=== PATIENT | male | born 2000 | race Caucasian/White ===

== ENCOUNTER 2018-08-10 13:20 | Emergency (ER) | payer OTHER, SELFPAY ==
[2018-08-10 13:21] VITALS: BP 121/70; PULSE 77; RESP 18; TEMP 36.1; O2SAT 96; BMI 29.0
--- NOTE | 2018-08-10 13:31 | EKG12_ITS ---
Test Reason : SYNCOPE Blood Pressure : / mmHG Vent. Rate : 061 BPM Atrial Rate : 061 BPM P-R Int : 160 ms QRS Dur : 092 ms QT Int : 386 ms P-R-T Axes : 040 070 057 degrees QTc Int : 388 ms Normal sinus rhythm with sinus arrhythmia Normal ECG Confirmed by JULIAN VEGA, OSVALDO ([id number]), international editorial producer BETTY GARCIA ([id number]) on 08/12/2018 12:49:37 PM Referred By: IRINA Confirmed By:OSVALDO JORDAN MD
--- NOTE | 2018-08-10 13:36 | ED.VISSUMM ---
- ER Visit Summary Date of Service: 08/10/18 Chief Complaint: Syncopal event History of Present Illness: The patient is a 17 M presents to the emergency department after syncopal event. Patient states he does have a history of prior syncope. He states he will pass out from time to time. States that this morning, he felt mildly lightheaded and nauseated. States he got out and then felt worse. States he tried to lay down and then passed out. He denies striking his head. He denies chest pain or shortness of breath. He denies any other symptoms. He has no history of cardiac disease. He has no history of underlying lung disease. He is on no daily medications. He does smoke from time to time. He said no diarrhea or other illness. He is not had fever chills. Physical Examination: Vital signs reviewed General: Well-nourished, well-developed Head: Normocephalic, atraumatic Eyes: Pupils equal and reactive, extraocular muscles intact Neck, supple, no lymphadenopathy Heart: Regular rate and rhythm Respiratory: No distress, clear bilaterally Abdomen: Soft, nontender, nondistended, no peritoneal signs Back: Nontender Extremities: Nontender, no edema, no cords Skin: Normal color no rash Neuro: Alert and oriented, no focal or lateralizing deficits Test Results: [] Emergency Department Course and Treatment: The patient symptoms do seem entirely vasovagal. EKG was obtained. It showed sinus arrhythmia, but normal axis normal intervals. There is no prolonged QT or WPW. Screening labs are obtained were unremarkable. Of fluids, the patient's symptoms have resolved. He does have history of prior syncope. I do not suspect a dangerous cause. I do feel that this is safe for outpatient follow-up. The patient is counseled concerning symptoms and reasons to return. He will be discharged home. Treatment Plan: [] Disposition: Discharge Impression: 1. Vasovagal syncope This note was generated with [employer] dictation software. It may contain incorrect words, spelling, and punctuation that were not noted in review of the chart prior to signing ED Disposition - Plan for ED Patient: Instructions: ED Syncope Vasovagal Referrals: Care Physician,No Primary [Primary Care Provider] -
[2018-08-10] MEDS: 0.9% Normal Saline 1,000 ML 1000 ML IV (13:57)
[2018-08-10 13:58] LABS: Absolute Lymphocyte Count 1.62 X10^3/ul (0.83-4.51); Absolute Neutrophil Count 3.2 X10^3/uL (2.0-7.7); Basophil# 0.05 X10^3/uL; Basophil% 0.9 % (0-1); Eosinophil# 0.31 X10^3/uL; Eosinophils% 5.4 % (0-5); Hematocrit 47.7 % (40-54); Hemoglobin 16.4 g/dl (13.0-16.5); Lymphocyte # 1.62 X10^3/ul (4.0); Mean Corp Hgb Conc 34.4 g/gl (32-36); Mean Corpuscular Hgb 29.4 pg (27.0-32.0); Mean Corpuscular Volume 85.6 fL (80-94); Mean Platelet Vol. 10.7 fl (6.2-12.0); Monocyte# 0.61 X10^3/uL; Monocyte% 10.5 % (0-10); Neutrophil # 3.19 X10^3/uL (2.7-7.7); Platelet Count 227 K/mm3 (150-450); RBC Distribution Width CV 12.9 % (11.6-14.6); RBC Distribution Width SD 40.2 fl (35.1-43.9); Red Blood Count 5.57 M/mm3 (4.6-6.2); White Blood Count 5.8 K/mm3 (4.4-11.0)
[2018-08-10 14:06] LABS: POSITIVE COUNT NO; POSITIVE DIFFERENTIAL NO; POSITIVE MORPHOLOGY NO
[2018-08-10 14:13] LABS: Anion Gap 9 (5-15); BUN 12 mg/dL (7-18); BUN/Creat Ratio 9.5 RATIO (10-20); Calcium,Total 9.3 mg/dL (8.5-10.1); Chloride 107 mmol/L (98-107); Creatinine, Serum 1.26 mg/dL (0.70-1.30); EST Glomerular Filtration Rate 78 mL/min (>60); Est Glom Filt Rate - Afr Amer 94 mL/min (>60); Estimated Creatinine Clearance 82.03 ml/min; Glucose 123 mg/dL (74-106); Potassium 3.7 mmol/L (3.5-5.1); Sodium Level 141 mmol/L (136-145)
[2018-08-10 15:10] VITALS: BP 110/72; PULSE 58; RESP 12; O2SAT 97
== END 2018-08-10 15:13 | disposition home or self-care (01) ==
PROVIDERS: Emergency Provider Emergency Medicine
DX: R55 Syncope and collapse (principal); R11.0 Nausea; Z72.0 Tobacco use
CPT/HCPCS: 80048; 85025; 93005; 96360; 99284; J7030; A4216

== ENCOUNTER 2018-08-30 07:50 | Emergency (ER) | payer OTHER, SELFPAY ==
[2018-08-30 07:51] VITALS: BP 127/87; PULSE 83; RESP 16; TEMP 36.1; O2SAT 98; BMI 30.7
--- NOTE | 2018-08-30 08:16 | CT_ITS ---
STUDY: CT ABDOMEN AND PELVIS WITH CONTRAST REASON FOR EXAM: Male, 18 years old. Right lower quadrant pain and vomiting. RADIATION DOSAGE (If Supplied By Facility): CTDIvol = ( 14.88 ) mGy, DLP = ( 893.37 ) mGycm TECHNIQUE: Transaxial images were obtained from the dome of the diaphragm to the symphysis pubis with oral contrast. 100 IV/Oral Isovue 300 was administered. Sagittal and coronal images were reconstructed. Individualized dose optimization techniques were used for this CT. COMPARISON: None. FINDINGS: Mild increased markings at the lung bases suggestive of bibasilar atelectasis. The visualized portions of the heart are within normal limits. Normal liver. Normal gallbladder and extrahepatic biliary system. Normal spleen. Normal pancreas. Normal bilateral adrenal glands. Normal right kidney. Normal left kidney. Normal visualized stomach. Normal small intestine. Normal colon. Retrocecal appendix. Normal abdominal aorta. Normal inferior vena cava. There is borderline retroperitoneal lymphadenopathy with enlarged nodes no greater than 10mm in the short axis diameter. Normal urinary bladder. Small lymph nodes are seen in the mesentery in the right lower quadrant suggestive of mesenteric adenitis. Normal abdominal wall. Normal osseous structures. CT/Abdomen/Pelvis WITH Contrast IMPRESSION: Mesenteric adenitis in the right lower quadrant. Electronically Signed: Terry Alejandro, at 10:36 EDT , Service support ,
--- NOTE | 2018-08-30 08:19 | ED.DCSUM_ITS ---
- ER Visit Summary Date of Service: 08/30/18 Chief Complaint: Abdominal pain History of Present Illness: The patient is a 18 M with no primary care physician. He reports that he has abdominal pain that began yesterday. Is gradually gotten worse. Sick constant burning pain that waxes and wanes. It is 9 out of 10 at worst and 7-10 currently. Is worsened by movement relieved by remaining still. He has been nausea and vomited 8 times. No blood in his emesis. He is also had 3 episodes of diarrhea. No blood in stools or black tarry stools. No dysuria or frequency. Patient denies sick contacts. Has not been camping out of the country. No possible bad food exposure. He does drink well water, but others do at home and they are not ill. He is unsure of whether he was on antibiotics approximately 3 weeks ago for bronchitis. Physical Examination: Vitals: Stable. Afebrile. General: Well-nourished and well-developed. Head: Normocephalic atraumatic. Neck: Supple, no lymphadenopathy. No JVD. Nontender. Cardiovascular: Regular rate and rhythm. No murmurs. Respiratory: No respiratory distress. Clear to auscultation bilaterally. Abdominal: Soft, mild right upper quadrant and moderate right lower quadrant tenderness to palpation, nondistended, normal bowel sounds. No guarding, rebound, or peritoneal signs. Back: Nontender. Extremities: Nontender, no edema. Skin: Normal color, no rash. Neurologic: Alert and oriented ?3. Cranial nerves II through XII are intact. Normal strength and sensation. Psych: Normal affect. Test Results: CBC is normal. Chem-7 shows a chloride of 108 and calcium of 8.4. LFTs show an ALT of 68 and AST of 44. Lipase is normal. UA is negative. Clinical Impression(s) from Imaging Studies Abdomen/Pelvis CT 08/30/18 08:16 IMPRESSION: Mesenteric adenitis in the right lower quadrant. Electronically Signed: Terry Alejandro, at 10:36 EDT , Service support , Emergency Department Course and Treatment: Patient was treated with dose of morphine and Zofran IV. He is resting comfortably. He has had no vomiting or diarrhea while here. Treatment Plan: Patient will be discharged with Zofran. Instructed use Tylenol and/or ibuprofen for pain. Follow-up Dr. Turk in 3-5 days if not improving. Return to the emergency department for any worsening symptoms. Disposition: To home in improved and stable condition. Impression: 1. Mesenteric adenitis. This note was generated with [employer] dictation software. It may contain incorrect words, spelling, and punctuation that were not noted in review of the chart prior to signing ED Disposition - Plan for ED Patient: Instructions: ED Adenitis Mesenteric Prescriptions: Ondansetron [Zofran Odt] 4 mg PO Q8H PRN PRN #10 tablet PRN Reason: Nausea Referrals: Care Physician,No Primary [Primary Care Provider] - Lynette Turk DO [STAFF PHYSICIAN] - 3-5 Days if not improving
[2018-08-30 08:38] LABS: Absolute Lymphocyte Count 2.72 X10^3/ul (0.83-4.51); Absolute Neutrophil Count 4.9 X10^3/uL (2.0-7.7); Basophil# 0.07 X10^3/uL; Basophil% 0.8 % (0-1); Eosinophil# 0.42 X10^3/uL; Eosinophils% 4.8 % (0-5); Hematocrit 44.4 % (40-54); Hemoglobin 15.3 g/dl (13.0-16.5); Lymphocyte # 2.72 X10^3/ul (4.0); Lymphocyte % 31.3 % (19-41); Mean Corp Hgb Conc 34.5 g/gl (32-36); Mean Corpuscular Hgb 29.9 pg (27.0-32.0); Mean Corpuscular Volume 86.9 fL (80-94); Mean Platelet Vol. 10.5 fl (6.2-12.0); Monocyte# 0.61 X10^3/uL; Neutrophil # 4.85 X10^3/uL (2.7-7.7); Neutrophil % 55.9 % (47-70); POSITIVE COUNT NO; POSITIVE DIFFERENTIAL NO; POSITIVE MORPHOLOGY NO; Platelet Count 246 K/mm3 (150-450); RBC Distribution Width CV 13.1 % (11.6-14.6); RBC Distribution Width SD 41.9 fl (35.1-43.9); Red Blood Count 5.11 M/mm3 (4.6-6.2); White Blood Count 8.7 K/mm3 (4.4-11.0)
[2018-08-30] MEDS: 0.9% Normal Saline 1,000 ML 1000 ML IV (08:53)
[2018-08-30] MEDS: Morphine 4 MG/ML Syringe IV (08:53)
[2018-08-30] MEDS: Ondansetron 4 MG/2 ML Vial IV (08:53)
[2018-08-30 08:54] LABS: AST(SGOT) 44 U/L (15-37); Alanine Aminotransfer ALT/SGPT 68 U/L (16-61); Albumin, Serum 3.6 g/dL (3.2-5.0); Alkaline Phosphatase 82 U/L (45-117); Anion Gap 3 (5-15); BUN 9 mg/dL (7-18); BUN/Creat Ratio 8.3 RATIO (10-20); Calcium,Total 8.4 mg/dL (8.5-10.1); Chloride 108 mmol/L (98-107); Creatinine, Serum 1.08 mg/dL (0.70-1.30); EST Glomerular Filtration Rate 93 mL/min (>60); Est Glom Filt Rate - Afr Amer 112 mL/min (>60); Estimated Creatinine Clearance 94.91 ml/min; Globulin 3.5 g/dL (2.2-4.2); Glucose 93 mg/dL (74-106); Lipase 107 U/L (73-393); Potassium 3.8 mmol/L (3.5-5.1); Protein, Total 7.1 g/dL (6.4-8.2); Sodium Level 139 mmol/L (136-145)
[2018-08-30 09:53] VITALS: BP 130/79; PULSE 65; RESP 16; TEMP 36.4; O2SAT 98
[2018-08-30 09:56] VITALS: BP 130/79; PULSE 57; RESP 16; TEMP 36.4; O2SAT 98
[2018-08-30 10:07] LABS: Bacteria 0 SEEN /hpf (None Seen); Color, Urine Straw (Yellow); Glucose, Dipstick Normal (Normal); Ketone-Dipstick Negative (Negative); Leukocyte Esterase-Dipstick Negative /ul (Negative); Mucous, Urine 0 SEEN /hpf (<or=2+); Nitrite-Dipstick Negative (Negative); Occult Blood-Urine Negative /ul (Negative); Protein-Dipstick Negative (Negative); Specific Gravity, Urine 1.005 (1.002-1.030); Squamous Epithelial Cells - UA 0 SEEN /hpf (0-5); Urine Bilirubin Dipstick Negative (Negative); Urine Clarity Clear (Clear); Urine Urobilinogen Normal (Normal); White Blood Cells 0 SEEN /hpf (0-5)
[2018-08-30 10:13] LABS: Red Blood Cells-Urine 0-5 SEEN /hpf (0-5)
[2018-08-30 11:08] VITALS: BP 129/87; PULSE 56; RESP 14; O2SAT 97
== END 2018-08-30 11:10 | disposition home or self-care (01) ==
PROVIDERS: Emergency Provider Emergency Medicine
DX: I88.0 Nonspecific mesenteric lymphadenitis (principal); J45.909 Unspecified asthma, uncomplicated; F17.210 Nicotine dependence, cigarettes, uncomplicated
CPT/HCPCS: 74177; 80053; 81001; 83690; 85025; 99283; J7030; Q9967; J2405

== ENCOUNTER 2023-04-20 05:37 | Inpatient (IN) | payer OTHER, SELFPAY ==
[2023-04-20] VITALS (9 sets, daily range): BP systolic 104–136; BP diastolic 49–76; PULSE 51–79; RESP 12–18; TEMP 36.8–37.2; O2SAT 96–99; BMI 28.1
--- NOTE | 2023-04-20 06:01 | CT_ITS ---
INDICATION: abdominal pain EXAMINATION: CT Abdomen And Pelvis W/ Contrast Injection TECHNIQUE: Helically acquired images were obtained of the abdomen and pelvis with sagittal and coronal reconstructed images. Individualized dose optimization techniques were used for this CT. IV contrast dosage and agent: 100 mL of Isovue-370. Oral contrast: None. COMPARISON: 08/30/2018. FINDINGS: VESSELS: No abdominal aortic aneurysm or dissection. LIVER: No evidence of a mass. No intrahepatic or extrahepatic biliary duct dilation. GALLBLADDER: No calcified stones. No evidence of cholecystitis. PANCREAS: No focal solid or cystic mass. No evidence of pancreatitis. SPLEEN: Normal. ADRENAL GLANDS: Normal. KIDNEYS AND URETERS: No urinary tract stone. No hydronephrosis or hydroureter. No significant asymmetric perinephric stranding. URINARY BLADDER: Unremarkable. BOWEL: Thickening of the ascending colon and proximal transverse colon. No evidence of diverticulosis or diverticulitis. There is increased enhancement of the wall of the distal appendix and there is mild periappendiceal fat stranding. The proximal appendix appears normal with air in the lumen. The appendix is not dilated. No evidence of bowel obstruction. REPRODUCTIVE ORGANS: No evidence of a pelvic mass. PERITONEUM: Small amount of dependent pelvic free fluid. No free air. LYMPH NODES: No pathologically enlarged mesenteric or retroperitoneal lymph nodes. ABDOMINAL WALL: No abdominal or pelvic wall hernia. BONES: No acute abnormality. LOWER CHEST: Visualized lung bases are unremarkable. CT/Abdomen/Pelvis W IV Cont ONLY IMPRESSION: 1. Increased enhancement and fluid-filled lumen of the distal appendix with mild periappendiceal fat stranding. The appendix is not dilated. Findings may represent mild/early tip appendicitis. 2. Thickening of the ascending colon and proximal transverse colon which may represent colitis. Electronically Signed: Grover Puentes DO at 6:49 EST ,
--- NOTE | 2023-04-20 06:01 | EX.ED.DYSGE1 ---
HPI History of Present Illness Chief Complaint: Abd Pain Informant: patient Narrative Narrative: 22-year-old male presenting to the emergency department chief complaint of abdominal pain. Patient states that on Thursday night he had 2 episodes of vomiting. He developed diarrhea and states that all day Thursday he had diarrhea. States that beginning last evening he developed a mid abdominal pain. He states that it builds and worsens and has not stopped. He cannot describe the quality to it. He rates it as severe. Nothing seems to make it better or worse. No fevers. No URI symptoms. No blood in the stool or vomit. PFSH PFSH Medical History no medical history Home Medications NK 04/20/23 [History Last Taken Unknown] Allergy/AdvReac Type Severity Reaction Status Date / Time No Known Allergies Allergy Verified 04/20/23 05:44 Social History Smoking Status: Current every day smoker tobacco type: smokeless tobacco ROS ROS ED Constitutional Constitutional ED: Denies chills, fever(s) or weight loss Eyes Eyes: Denies change in vision or diplopia ENT ENT ED: Denies ear pain, rhinorrhea or sore throat Cardiovascular Cardiovascular: Denies chest pain, orthopnea, palpitations or racing heartbeat Respiratory/Chest Respiratory/Chest: Denies cough, dyspnea or orthopnea Gastrointestinal Gastrointestinal: Reports abdominal pain, diarrhea, nausea and vomiting Genitourinary Genitourinary ED: Denies dysuria, hematuria or urinary frequency Musculoskeletal Musculoskeletal: Denies arthralgias or myalgias Integumentary Denies abscess or rash Neurologic Neurologic: Denies headache(s) or weakness Psychiatric Psychiatric: Denies anxiety, depression, suicidal ideation or suicidal thoughts Endocrine Endocrinology: Denies polydipsia, polyphagia or polyuria Allergic/Immunologic Allergic/Immunologic ED: Denies mouth swelling, tongue swelling or urticaria EXAM Physical Exam Const Vital Signs: 04/20/23 05:37 Temperature 98.9 F Temperature Source Temporal Pulse Rate 79 Respiratory Rate 18 Blood Pressure 136/76 H Blood Pressure Mean 96 Pulse Ox 96 Oxygen Delivery Method Room Air Positive well nourished and well developed General Appearance ED: well developed HEENT Reports normocephalic, head/scalp atraumatic and moist mucous membranes Eyes PERRL and EOMs intact bilaterally Neck no lymphadenopathy, supple and no JVD Resp normal respiratory effort and clear to auscultation bilaterally Cardio regular rate, regular rhythm and no murmurs GI Inspection: Negative for abdominal distention Auscultation: normoactive bowel sounds Palpation: soft, tender RLQ and periumbilical and guarding RLQ Back/Spine no CVA tenderness and normal ROM Extremity normal to inspection General Extremety ED: Negative for edema General Extremity: Negative for edema Neuro oriented x3 and CN's II-XII intact bilaterally Sensorium / Orientation: alert Motor Exam: strength 5/5 throughout Psych mental status grossly normal Mood & Affect: Negative for depressed or tearful Skin no rashes or lesions noted and no wounds MDM MDM MDM Narrative Medical decision making narrative: White count is 10 with 78.9 neutrophils 11.8 lymphocytes. Glucose 112. Urine normal. Lipase 24. Patient received IV fluids and Toradol. CT of the abdomen pelvis with IV contrast only was obtained. This was read by radiology and reviewed by myself. Radiology reports possible thickening of the ascending and proximal transverse colon. Distal appendiceal thickening and inflammation but the proximal appendix is not dilatated and contains air. I do not see an appendicolith. I spoke with surgery and they came and evaluated the patient. They feel that CT and the exam is more consistent with colitis. Patient received morphine and Zofran and then Zosyn. I spoke with the patient and updated him as well as our hospitalist. History & Record Review Discussion w/independent historian: Patient Lab Data Attestation: I reviewed the patient's lab results. Labs: Laboratory Results - last 24 hr 04/20/23 04/20/23 05:50 05:58 WBC 10.0 RBC 4.98 Hgb 14.5 Hct 42.9 MCV 86.1 MCH 29.1 MCHC 33.8 RDW Std Deviation 38.3 RDW Coeff of Naveed 12.1 Plt Count 204 MPV 10.1 Immature Gran % (Auto) 0.300 Neut % (Auto) 78.9 H Lymph % (Auto) 11.8 L [place] % (Auto) 7.4 Eos % (Auto) 1.3 Baso % (Auto) 0.3 Absolute Neuts (auto) 7.9 H Absolute Lymphs (auto) 1.18 Nucleated RBC % 0 Sodium 138 Potassium 3.6 Chloride 105 Carbon Dioxide 27.0 Anion Gap 6 BUN 14 Creatinine 1.11 Est GFR (MDRD) Af Amer 104 Est GFR (MDRD) Non-Af 86 BUN/Creatinine Ratio 12.6 Glucose 112 H Calcium 8.6 Total Bilirubin 0.40 AST 27 ALT 37 Alkaline Phosphatase 65 Total Protein 7.6 Albumin 3.8 Globulin 3.8 Albumin/Globulin Ratio 1.0 Lipase 24 Urine Color Yellow Urine Clarity Clear Urine pH 7.0 Ur Specific [place] 1.010 Urine Protein Negative Urine Glucose (UA) Normal Urine Ketones Negative Urine Occult Blood Negative Urine Nitrite Negative Urine Bilirubin Negative Urine Urobilinogen Normal Ur Leukocyte Esterase Negative Urine RBC 0 SEEN Urine WBC 0 SEEN Ur Squamous Epith Cells 0 SEEN Urine Bacteria 0 SEEN Urine Mucus 0 SEEN Radiography Diagnostic Testing: Clinical Impression(s) from Imaging Studies Abdomen/Pelvis CT 04/20/23 06:01 IMPRESSION: 1. Increased enhancement and fluid-filled lumen of the distal appendix with mild periappendiceal fat stranding. The appendix is not dilated. Findings may represent mild/early tip appendicitis. 2. Thickening of the ascending colon and proximal transverse colon which may represent colitis. Electronically Signed: Grover Puentes DO at 6:49 EST , Discharge Plan Dx/Rx/DC Orders Clinical Impression: Right sided colitis, Abdominal pain Disposition Disposition: Acute Care [facility]
[2023-04-20] MEDS: Ketorolac 30 MG/ML Syringe IV (06:07)
[2023-04-20 06:08] LABS: Bacteria 0 SEEN /hpf (None Seen); Mucous, Urine 0 SEEN /hpf (<or=2+); Red Blood Cells-Urine 0 SEEN /hpf (0-5); Squamous Epithelial Cells - UA 0 SEEN /hpf (0-5); White Blood Cells 0 SEEN /hpf (0-5)
[2023-04-20 06:10] LABS: Absolute Lymphocyte Count 1.18 X10^3/uL (0.83-4.51); Absolute Neutrophil Count 7.9 X10^3/uL (2.0-7.7); Basophil# 0.03 X10^3/uL; Basophil% 0.3 % (0-1); Eosinophil# 0.13 X10^3/uL; Eosinophils% 1.3 % (0-5); Hematocrit 42.9 % (40-54); Hemoglobin 14.5 g/dL (13.0-16.5); Lymphocyte # 1.18 X10^3/ul (0.83-4.51); Lymphocyte % 11.8 % (19-41); Mean Corp Hgb Conc 33.8 g/dL (32-36); Mean Corpuscular Hgb 29.1 pg (27.0-32.0); Mean Corpuscular Volume 86.1 fL (80-94); Mean Platelet Vol. 10.1 fl (6.2-12.0); Monocyte# 0.74 X10^3/uL; Monocyte% 7.4 % (0-10); NRBC Flagged by Analyzer 0 % (0-5); Neutrophil # 7.92 X10^3/uL (2.7-7.7); Neutrophil % 78.9 % (47-70); Platelet Count 204 K/mm3 (150-450); RBC Distribution Width CV 12.1 % (11.6-14.6); RBC Distribution Width SD 38.3 fl (35.1-43.9); Red Blood Count 4.98 M/mm3 (4.6-6.2)
[2023-04-20 06:11] LABS: Color, Urine Yellow (Yellow); Glucose, Dipstick Normal (Normal); Ketone-Dipstick Negative (Negative); Leukocyte Esterase-Dipstick Negative /ul (Negative); Nitrite-Dipstick Negative (Negative); Occult Blood-Urine Negative /ul (Negative); Protein-Dipstick Negative (Negative); Urine Bilirubin Dipstick Negative (Negative); Urine Clarity Clear (Clear); Urine Urobilinogen Normal (Normal)
[2023-04-20 06:26] LABS: AST(SGOT) 27 U/L (15-37); Alanine Aminotransfer ALT/SGPT 37 U/L (16-61); Albumin, Serum 3.8 g/dL (3.2-5.0); Alkaline Phosphatase 65 U/L (45-117); Anion Gap 6 (5-15); BUN 14 mg/dL (7-18); BUN/Creat Ratio 12.6 RATIO (10-20); Calcium,Total 8.6 mg/dL (8.5-10.1); Chloride 105 mmol/L (98-107); Creatinine, Serum 1.11 mg/dL (0.70-1.30); EST Glomerular Filtration Rate 86 mL/min (>60); Est Glom Filt Rate - Afr Amer 104 mL/min (>60); Globulin 3.8 g/dL (2.2-4.2); Glucose 112 mg/dL (74-106); Lipase 24 U/L (13-75); Potassium 3.6 mmol/L (3.5-5.1); Protein, Total 7.6 g/dL (6.4-8.2); Sodium Level 138 mmol/L (136-145)
--- NOTE | 2023-04-20 07:28 | NURSING ---
DR GERSON CUMMINGS
[2023-04-20] MEDS: Ondansetron 4 MG/2 ML Vial IV ×2 (07:32→20:42)
[2023-04-20] MEDS: 0.9% Normal Saline (1000mL) 1,000 ML 999 ML IV (07:32)
[2023-04-20] MEDS: Morphine 4 MG/ML Syringe IV (07:32)
--- NOTE | 2023-04-20 07:32 | CON.PCM.SX_ITS ---
Assessment & Plan Assessment/Plan (1) Right sided colitis: PLAN: Patient is having abdominal pain and diarrhea. I reviewed the patient's CT scan which shows colitis of the entire right colon as well as proximal transverse colon. It appears significantly thickened with obliteration of the lumen. Patient also has some thickening of his distal appendix with normal proximal appendix and no appendicolith. I believe the thickening of the tip of the appendix is related to his colitis. I do not believe it appears to be acute appendicitis. At this time I recommend medical admit with bowel rest and IV antibiotics to treat the colitis. I will stay involved in case white count starts rising and I will repeat a CT with oral contrast if there is concern for appendicitis. Possible GI consult. Eddie Landeros MD Pager: [facility] [address] [place] [address], [address] [place] [phone] Office: HPI Consult Data Date of Consult: 04/20/23 HPI Narrative HPI Narrative: ELIO FORTUNE, is a 22 M who presents with 2 days of right-sided abdominal pain and diarrhea. Patient reports has been having diarrhea since Thursday. He reports right-sided abdominal pain that has been worsening. He denies fevers or chills. [facility] Medical History no medical history Home Medications NK 04/20/23 [History Last Taken Unknown] Allergy/AdvReac Type Severity Reaction Status Date / Time No Known Allergies Allergy Verified 04/20/23 05:44 Social History Smoking Status: Current every day smoker tobacco type: smokeless tobacco ROS Constitutional Constitutional: Reports anorexia; Denies chills, fatigue or fever(s) ENT HEENT: Denies epistaxis or facial pain Cardiovascular Cardiovascular: Denies chest pain Respiratory/Chest Respiratory/Chest: Denies cough or dyspnea Gastrointestinal Gastrointestinal: Reports abdominal pain and diarrhea; Denies nausea or vomiting Genitourinary Genitourinary: Denies change in urinary stream Musculoskeletal Musculoskeletal: Denies abnormal gait Integumentary Integumentary: Denies new lesions Neurologic Neurologic: Denies abnormal gait or dizziness Psychiatric Psychiatric: Denies anxiety Endocrine Endocrinology: Denies heat intolerance Hematologic/Lymphatic Hematologic/Lymphatic: Denies easy bleeding Physical Exam Const alert and oriented x3 HEENT normocephalic Eyes PERRL Resp normal respiratory effort and normal air movement Cardio regular rate and regular rhythm GI soft to palpation and non-distended Palpation: tender RLQ and RUQ Extremity normal to inspection Lab / Micro Data 04/20/23 05:50 04/20/23 05:50 Labs: Laboratory Results - last 24 hr 04/20/23 05:50: WBC 10.0, RBC 4.98, Hgb 14.5, Hct 42.9, MCV 86.1, MCH 29.1, MCHC 33.8, RDW Std Deviation 38.3, RDW Coeff of Naveed 12.1, Plt Count 204, MPV 10.1, Immature Gran % (Auto) 0.300, Neut % (Auto) 78.9 H, Lymph % (Auto) 11.8 L, Benson % (Auto) 7.4, Eos % (Auto) 1.3, Baso % (Auto) 0.3, Absolute Neuts (auto) 7.9 H, Absolute Lymphs (auto) 1.18, Nucleated RBC % 0, Sodium 138, Potassium 3.6, Chloride 105, Carbon Dioxide 27.0, Anion Gap 6, BUN 14, Creatinine 1.11, Est GFR (MDRD) Af Amer 104, Est GFR (MDRD) Non-Af 86, BUN/Creatinine Ratio 12.6, Glucose 112 H, Calcium 8.6, Total Bilirubin 0.40, AST 27, ALT 37, Alkaline Phosphatase 65, Total Protein 7.6, Albumin 3.8, Globulin 3.8, Albumin/Globulin Ratio 1.0, Lipase 24 04/20/23 05:58: Urine Color Yellow, Urine Clarity Clear, Urine pH 7.0, Ur Specific [place] 1.010, Urine Protein Negative, Urine Glucose (UA) Normal, Urine Ketones Negative, Urine Occult Blood Negative, Urine Nitrite Negative, Urine Bilirubin Negative, Urine Urobilinogen Normal, Ur Leukocyte Esterase Negative, Urine RBC 0 SEEN, Urine WBC 0 SEEN, Ur Squamous Epith Cells 0 SEEN, Urine Bacteria 0 SEEN, Urine Mucus 0 SEEN Imagaing Radiology Impression Abdomen/Pelvis CT 04/20/23 06:01 IMPRESSION: 1. Increased enhancement and fluid-filled lumen of the distal appendix with mild periappendiceal fat stranding. The appendix is not dilated. Findings may represent mild/early tip appendicitis. 2. Thickening of the ascending colon and proximal transverse colon which may represent colitis. Electronically Signed: Grover Puentes DO at 6:49 EST ,
--- NOTE | 2023-04-20 07:38 | PCM.HP.STD ---
HPI - General General Date of Admission: 04/20/23 Date of Service: 04/20/23 Chief Complaint: Abdominal pain/nausea/diarrhea HPI Narrative ELIO FORTUNE, is a 22 M who presented to the emergency department at [facility] on 04/20/2023 complaining of abdominal pain, nausea, diarrhea. Symptoms started about 24 hours prior to presentation. The patient denies having anything like this previously. He denies any family history of inflammatory bowel disease. He has had no recent antibiotics. He states he has not had multiple loose stools and had 1 episode of emesis the day prior. His oral intake has overall been poor. He does complain of seeing some intermittent blood in his stool. Vital signs unremarkable. His CBC is unremarkable and he has a hemoglobin of 14.5. He does have a left shift with a 78.9% neutrophilia. His chemistry panel is unremarkable. His urine is unremarkable. CT of the abdomen pelvis was performed and demonstrates increased enhancement and fluid-filled lumen of the distal appendix with mild periappendiceal fat stranding with no appendiceal dilation that may represent early mild tip appendicitis and thickening of the ascending colon and proximal transverse colon which is suggestive of colitis. In the emergency department the patient was given IV fluids, antiemetics, pain medication, and started on IV Zosyn. [facility] Medical History Tobacco abuse Medical History no medical history Home Medications NK 04/20/23 [History Last Taken Unknown] Allergy/AdvReac Type Severity Reaction Status Date / Time No Known Allergies Allergy Verified 04/20/23 05:44 no significant family history no surgical history Social History (Updated 04/20/23 @ 08:[address] Amie Navas DO) household members: family housing: house Smoking Status: Current every day smoker tobacco type: e-cigarettes alcohol intake: never substance use type: marijuana ROS Constitutional Constitutional: Reports malaise and weakness; Denies anorexia, change in weight, chills, fatigue, fever(s), night sweats or other Eyes Eyes: Denies blurry vision, change in eye color, change in vision, discharge from eye(s), double vision, erythema, eye pain, loss of vision or other ENT HEENT: Denies abnormal hearing, dysphagia, ear pain, epistaxis, headache(s), hearing loss, nasal congestion, nasal discharge, post nasal drip, sinus pressure, sore throat or other Cardiovascular Cardiovascular: Denies chest pain, claudication, dyspnea on exertion, edema, lightheadedness, orthopnea, palpitations, paroxysmal nocturnal dyspnea, rapid heart rate, syncope or other Respiratory/Chest Respiratory/Chest: Denies cough, dyspnea, excessive phlegm production, hemoptysis, productive cough, shortness of breath at rest, shortness of breath with exertion, wheezing or other Gastrointestinal Gastrointestinal: Reports abdominal pain, diarrhea, hematochezia, loose stools, nausea and vomiting; Denies coffee ground emesis, constipation, dyspepsia, hematemesis, melena or other Genitourinary Genitourinary: Denies burning urination, difficulty urinating, dysuria, hematuria, nocturia, urinary frequency, urinary hesitancy, urinary incontinence, urinary urgency or other Musculoskeletal Musculoskeletal: Denies arthralgias, back pain, joint pain, joint stiffness, joint swelling, myalgias, neck pain or other Neurologic Neurologic: Denies abnormal gait, abnormal speech, confusion, disequilibrium, dizziness, focal weakness, headache(s), numbness, paresthesias, seizure-like activity, seizures, syncope, tingling, tremor(s) or other Psychiatric Psychiatric: Denies anxiety, depression, homicidal ideation, suicidal ideation or other Endocrine Endocrinology: Denies change in body appearance, cold intolerance, excessive sweating, heat intolerance, polydipsia, polyuria or other Hematologic/Lymphatic Hematologic/Lymphatic: Denies anemia, easy bleeding, easy bruising, lymphadenopathy or other Allergic/Immunologic Allergic/Immunologic: Denies rhinitis, hives, eczemia, asthma or other Vital Signs Vital Signs Vital Signs: 04/20/23 05:37 Temperature 98.9 F Temperature Source Temporal Pulse Rate 79 Respiratory Rate 18 Blood Pressure 136/76 H Blood Pressure Mean 96 Pulse Ox 96 Oxygen Delivery Method Room Air Physical Exam Const alert, oriented x3, no apparent distress, average body habitus and well nourished Constitutional Narrative: Young, white male, lying in bed, father at bedside, patient appears ill but nontoxic General Appearance: cooperative HEENT normocephalic, head/scalp atraumatic, hearing grossly normal bilaterally and moist oral mucous membranes HEENT Narrative: Dentures in place upper and lower due to previous tooth extraction, Mallampati is 2, no thrush Resp normal respiratory effort, no retractions, no use of accessory muscles and clear to auscultation bilaterally Auscultation: Negative for rales, rhonchi or wheezes Cardio regular rate, regular rhythm, S1 normal heart sound, S2 normal heart sound, no murmurs, no rub, no gallops and no clicks GI GI Narrative: Bowel sounds are normal active, abdomen is nondistended, diffuse tenderness with more increased point tenderness in the right lower quadrant and right side of abdomen, no distention Extremity no clubbing, cyanosis or edema Extremity Narrative: Pedal pulse is are 2+ Skin Skin Narrative: Multiple tattoos, no wounds or lesions Neuro oriented x3, moves all extremities and no focal motor deficits Speech: speech normal Psych Psych Narrative: Affect is slightly flat however eye contact is good and mood appears stable Results Lab / Micro Data 04/20/23 05:50 04/20/23 05:50 Labs: Laboratory Results - last 24 hr 04/20/23 05:50: WBC 10.0, RBC 4.98, Hgb 14.5, Hct 42.9, MCV 86.1, MCH 29.1, MCHC 33.8, RDW Std Deviation 38.3, RDW Coeff of Naveed 12.1, Plt Count 204, MPV 10.1, Immature Gran % (Auto) 0.300, Neut % (Auto) 78.9 H, Lymph % (Auto) 11.8 L, [place] % (Auto) 7.4, Eos % (Auto) 1.3, Baso % (Auto) 0.3, Absolute Neuts (auto) 7.9 H, Absolute Lymphs (auto) 1.18, Nucleated RBC % 0, Sodium 138, Potassium 3.6, Chloride 105, Carbon Dioxide 27.0, Anion Gap 6, BUN 14, Creatinine 1.11, Est GFR (MDRD) Af Amer 104, Est GFR (MDRD) Non-Af 86, BUN/Creatinine Ratio 12.6, Glucose 112 H, Calcium 8.6, Total Bilirubin 0.40, AST 27, ALT 37, Alkaline Phosphatase 65, Total Protein 7.6, Albumin 3.8, Globulin 3.8, Albumin/Globulin Ratio 1.0, Lipase 24 04/20/23 05:58: Urine Color Yellow, Urine Clarity Clear, Urine pH 7.0, Ur Specific [place] 1.010, Urine Protein Negative, Urine Glucose (UA) Normal, Urine Ketones Negative, Urine Occult Blood Negative, Urine Nitrite Negative, Urine Bilirubin Negative, Urine Urobilinogen Normal, Ur Leukocyte Esterase Negative, Urine RBC 0 SEEN, Urine WBC 0 SEEN, Ur Squamous Epith Cells 0 SEEN, Urine Bacteria 0 SEEN, Urine Mucus 0 SEEN Imagaing Radiology Impression Abdomen/Pelvis CT 04/20/23 06:01 IMPRESSION: 1. Increased enhancement and fluid-filled lumen of the distal appendix with mild periappendiceal fat stranding. The appendix is not dilated. Findings may represent mild/early tip appendicitis. 2. Thickening of the ascending colon and proximal transverse colon which may represent colitis. Electronically Signed: Grover Puentes, at 6:49 EST , Assessment & Plan Assessment/Plan (1) Right sided colitis: (2) Abdominal pain: PLAN: Plan Colitis -CT demonstrates acute colitis of the ascending and proximal transverse colon -No family history of personal history of inflammatory bowel disease -Check sed rate and CRP -Check enteric panel -Check C. difficile -Check stool guaiac -Check stool lactoferrin -Start Zosyn -IV fluids at 125 cc/h -N.p.o. except for sips and chips -As needed antiemetics -As needed pain medications -GI consultation-->? Steroids Possible appendicitis -Consult general surgery to monitor -Case was discussed initially in the emergency department they did not feel this was acute appendicitis that needed to emergently go to the operating room -As needed all medications as noted above Tobacco abuse -Nicotine patch -Patient vapes -Recommend cessation DVT prophylaxis -Lovenox 40 subcu daily CODE STATUS Full code Charges/Coding Visit Charges Inpatient E&M: 58199 Init Hosp L2
[2023-04-20] MEDS: Piperacil/Tazobactam 4.5 GM in 0.9% Normal Saline (100mL MB+) 100 ML IV (07:42)
--- NOTE | 2023-04-20 07:46 | NURSING ---
MED SURG OBS GERSON COLITIS
[2023-04-20] MEDS: Lactated Ringers 1,000 ML 125 ML IV (09:01)
[2023-04-20] MEDS: 0.9% Normal Saline 1,000 ML 125 ML IV ×2 (09:54→17:13)
[2023-04-20] MEDS: Enoxaparin 40 MG/0.4 ML Syringe SC (09:54)
[2023-04-20 10:13] LABS: Erythrocyte Sedimentation Rate 16 mm/hr (0-20)
[2023-04-20] MEDS: Morphine 2 MG/ML Syringe IV ×3 (12:19→21:34)
[2023-04-20] MEDS: 0.9% Saline Lock 10 ML Syringe IV (12:26)
[2023-04-20] MEDS: Piperacil/Tazobactam 3.375 GM in 0.9% Normal Saline (50mL MB+) 50 ML IV ×2 (13:32→20:51)
--- NOTE | 2023-04-20 16:41 | CON.PCM.GI_ITS ---
HPI Consult Data Date of Consult: 04/20/23 HPI Narrative Reason for Consultation: Abnormal CT HPI Narrative: ELIO FORTUNE, is a 22 M who presents to the ED with abdominal pain. Patient states that on Thursday night he had 2 episodes of vomiting. He developed diarrhea and states that all day Thursday he had diarrhea. States that beginning last evening he developed a mid abdominal pain. He states that it builds and worsens and has not stopped. He cannot describe the quality to it. He rates it as severe. Nothing seems to make it better or worse. No fevers. No URI symptoms. No blood in the stool or vomit. CT scan of the abdomen pelvis in the ED displayed thickening of the ascending colon and proximal transverse colon. No evidence of diverticulosis or diverticulitis. There is increased enhancement of the wall of the distal appendix and there is mild periappendiceal fat stranding. The proximal appendix appears normal with air in the lumen. The appendix is not dilated. No evidence of bowel obstruction. He was started on antibiotics in the emergency room [facility] Medical History Tobacco abuse Medical History no medical history Home Medications NK 04/20/23 [History Last Taken Unknown] Allergy/AdvReac Type Severity Reaction Status Date / Time No Known Allergies Allergy Verified 04/20/23 05:44 Family History no significant family his Surgical History no surgical history Social History (Updated 04/20/23 @ 08:[address] Amie Navas DO) household members: family housing: house Smoking Status: Current every day smoker tobacco type: e-cigarettes alcohol intake: never substance use type: marijuana ROS Constitutional Constitutional: Reports malaise and weakness; Denies anorexia, change in weight, chills, fatigue, fever(s), night sweats or other Eyes Eyes: Denies blurry vision, change in eye color, change in vision, discharge from eye(s), double vision, erythema, eye pain, loss of vision or other ENT HEENT: Denies abnormal hearing, dysphagia, ear pain, epistaxis, headache(s), hearing loss, nasal congestion, nasal discharge, post nasal drip, sinus pressure, sore throat or other Cardiovascular Cardiovascular: Denies chest pain, claudication, dyspnea on exertion, edema, lightheadedness, orthopnea, palpitations, paroxysmal nocturnal dyspnea, rapid heart rate, syncope or other Respiratory/Chest Respiratory/Chest: Denies cough, dyspnea, excessive phlegm production, hemoptysis, productive cough, shortness of breath at rest, shortness of breath with exertion, wheezing or other Gastrointestinal Gastrointestinal: Reports abdominal pain, diarrhea, hematochezia, loose stools, nausea and vomiting; Denies coffee ground emesis, constipation, dyspepsia, hematemesis, melena or other Genitourinary Genitourinary: Denies burning urination, difficulty urinating, dysuria, hematuria, nocturia, urinary frequency, urinary hesitancy, urinary incontinence, urinary urgency or other Musculoskeletal Musculoskeletal: Denies arthralgias, back pain, joint pain, joint stiffness, joint swelling, myalgias, neck pain or other Neurologic Neurologic: Denies abnormal gait, abnormal speech, confusion, disequilibrium, dizziness, focal weakness, headache(s), numbness, paresthesias, seizure-like activity, seizures, syncope, tingling, tremor(s) or other Psychiatric Psychiatric: Denies anxiety, depression, homicidal ideation, suicidal ideation or other Endocrine Endocrinology: Denies change in body appearance, cold intolerance, excessive sw eating, heat intolerance, polydipsia, polyuria or other Hematologic/Lymphatic Hematologic/Lymphatic: Denies anemia, easy bleeding, easy bruising, lymph adenopathy or other Allergic/Immunologic Allergic/Immunologic: Denies rhinitis, hives, eczemia, asthma or other Physical Exam Const alert, oriented x3, no apparent distress, average body habitus and well nourished General Appearance: cooperative HEENT normocephalic, head/scalp atraumatic, hearing grossly normal bilaterally and moist oral mucous membranes HEENT Narrative: Dentures in place upper and lower due to previous tooth extraction, Mallampati is 2, no thrush Resp normal respiratory effort, no retractions, no use of accessory muscles and clear to auscultation bilaterally Auscultation: Negative for rales, rhonchi or wheezes Cardio regular rate, regular rhythm, S1 normal heart sound, S2 normal heart sound, no murmurs, no rub, no gallops and no clicks GI GI Narrative: Bowel sounds are normal active, abdomen is nondistended, diffuse tenderness with more increased point tenderness in the right lower quadrant and right side of abdomen, no distention Extremity no clubbing, cyanosis or edema Extremity Narrative: Pedal pulse is are 2+ Skin Skin Narrative: Multiple tattoos, no wounds or lesions Neuro oriented x3, moves all extremities and no focal motor deficits Speech: speech normal Psych Psych Narrative: Affect is slightly flat however eye contact is good and mood appears stable Lab / Micro Data 04/20/23 05:50 04/20/23 05:50 Labs: Laboratory Results - last 24 hr 04/20/23 05:50: WBC 10.0, RBC 4.98, Hgb 14.5, Hct 42.9, MCV 86.1, MCH 29.1, MCHC 33.8, RDW Std Deviation 38.3, RDW Coeff of Naveed 12.1, Plt Count 204, MPV 10.1, Immature Gran % (Auto) 0.300, Neut % (Auto) 78.9 H, Lymph % (Auto) 11.8 L, [place] % (Auto) 7.4, Eos % (Auto) 1.3, Baso % (Auto) 0.3, Absolute Neuts (auto) 7.9 H, Absolute Lymphs (auto) 1.18, Nucleated RBC % 0, ESR 16, Sodium 138, Potassium 3.6, Chloride 105, Carbon Dioxide 27.0, Anion Gap 6, BUN 14, Creatinine 1.11, Est GFR (MDRD) Af Amer 104, Est GFR (MDRD) Non-Af 86, BUN/Creatinine Ratio 12.6, Glucose 112 H, Calcium 8.6, Total Bilirubin 0.40, AST 27, ALT 37, Alkaline Phosphatase 65, C-React Prot Ext Range 93.00 H, Total Protein 7.6, Albumin 3.8, Globulin 3.8, Albumin/Globulin Ratio 1.0, Lipase 24 04/20/23 05:58: Urine Color Yellow, Urine Clarity Clear, Urine pH 7.0, Ur Specific [place] 1.010, Urine Protein Negative, Urine Glucose (UA) Normal, Urine Ketones Negative, Urine Occult Blood Negative, Urine Nitrite Negative, Urine Bilirubin Negative, Urine Urobilinogen Normal, Ur Leukocyte Esterase Negative, Urine RBC 0 SEEN, Urine WBC 0 SEEN, Ur Squamous Epith Cells 0 SEEN, Urine Bacteria 0 SEEN, Urine Mucus 0 SEEN Imagaing Radiology Impression Abdomen/Pelvis CT 04/20/23 06:01 IMPRESSION: 1. Increased enhancement and fluid-filled lumen of the distal appendix with mild periappendiceal fat stranding. The appendix is not dilated. Findings may represent mild/early tip appendicitis. 2. Thickening of the ascending colon and proximal transverse colon which may represent colitis. Electronically Signed: Grover PuentesDO at 6:49 EST , Assessment & Plan Assessment/Plan (1) Right sided colitis: (2) Abdominal pain: QUALIFIERS: Abdominal location: generalized Qualified Code(s): R10.84 - Generalized abdominal pain PLAN: Plan 22-year-old with acute onset of abdominal pain and discovered to have CT evidence of acute colitis involving terminal ileum, ascending colon and proximal transverse colon. Differential diagnosis does include ischemic colitis, infectious colitis ulcerative colitis and less likely inflammatory bowel disease. Differential diagnosis also includes typhlitis, autoimmune vasculitis recommendations are to check for enteric pathogens, C. difficile, stool lactoferrin, check serum ESR, CRP, inflammatory bowel disease panel, ANCA, BETZAIDA, QuantiFERON gold and chest x-ray along with acute hepatitis profile in case he needs to be started on immunosuppression. I would hold off on steroids at this time and continue antibiotics previously ordered. He will also undergo col onoscopy to evaluate the colon and small bowel for signs of inflammatory bowel disease.. Charges/Coding Visit Charges Inpatient E&M: 79755 Init Hosp L3
[2023-04-20] MEDS: Bisacodyl 5 MG Tablet 20 MG PO (17:11)
[2023-04-20] MEDS: Polyethylene Glycol 3350 BOWEL PREP PO (20:02)
[2023-04-21] VITALS (11 sets, daily range): BP systolic 97–119; BP diastolic 47–72; PULSE 56–75; RESP 12–18; TEMP 36.4–36.9; O2SAT 95–100; BMI 28.1
[2023-04-21] MEDS: Morphine 2 MG/ML Syringe IV ×3 (01:21→19:58)
[2023-04-21] MEDS: 0.9% Normal Saline 1,000 ML 125 ML IV ×2 (03:31→10:34)
[2023-04-21] MEDS: Piperacil/Tazobactam 3.375 GM in 0.9% Normal Saline (50mL MB+) 50 ML IV (05:17)
[2023-04-21 06:17] LABS: Absolute Lymphocyte Count 1.56 X10^3/uL (0.83-4.51); Absolute Neutrophil Count 4.2 X10^3/uL (2.0-7.7); Basophil# 0.03 X10^3/uL; Basophil% 0.4 % (0-1); Eosinophils% 4.5 % (0-5); Hematocrit 40.3 % (40-54); Hemoglobin 13.7 g/dL (13.0-16.5); Lymphocyte # 1.56 X10^3/ul (0.83-4.51); Lymphocyte % 23.1 % (19-41); Mean Corpuscular Hgb 30.3 pg (27.0-32.0); Mean Corpuscular Volume 89.2 fL (80-94); Mean Platelet Vol. 9.4 fl (6.2-12.0); Monocyte# 0.68 X10^3/uL; Monocyte% 10.1 % (0-10); NRBC Flagged by Analyzer 0 % (0-5); Neutrophil # 4.15 X10^3/uL (2.7-7.7); Neutrophil % 61.6 % (47-70); Platelet Count 168 K/mm3 (150-450); RBC Distribution Width CV 12.2 % (11.6-14.6); RBC Distribution Width SD 39.9 fl (35.1-43.9); Red Blood Count 4.52 M/mm3 (4.6-6.2); White Blood Count 6.7 K/mm3 (4.4-11.0)
[2023-04-21 06:47] LABS: ALB/GLOB Ratio 0.9 RATIO (0.9-2.4); AST(SGOT) 20 U/L (15-37); Alanine Aminotransfer ALT/SGPT 28 U/L (16-61); Albumin, Serum 3.3 g/dL (3.2-5.0); Alkaline Phosphatase 55 U/L (45-117); Anion Gap 3 (5-15); BUN 9 mg/dL (7-18); BUN/Creat Ratio 7.7 RATIO (10-20); Calcium,Total 8.4 mg/dL (8.5-10.1); Chloride 106 mmol/L (98-107); Creatinine, Serum 1.17 mg/dL (0.70-1.30); EST Glomerular Filtration Rate 81 mL/min (>60); Est Glom Filt Rate - Afr Amer 98 mL/min (>60); Estimated Creatinine Clearance 87.85 ml/min; Globulin 3.5 g/dL (2.2-4.2); Glucose 95 mg/dL (74-106); Magnesium 2.1 mg/dL (1.6-2.6); Potassium 3.8 mmol/L (3.5-5.1); Protein, Total 6.8 g/dL (6.4-8.2); Sodium Level 138 mmol/L (136-145)
--- NOTE | 2023-04-21 10:10 | CASEMGMT ---
RN TABBY Face to Face with patient for initial transition planning/care coordination assessment. RN CM introduced self and role at [facility]. Patient lying in bed, alert and oriented. Patient willing to participate in assessment and is able to answer all questions appropriately. Care providers, pharmacy, and demographics verified. Patient wishes to discharge home, denies need for home health at this time. Patient states he has no further needs or concerns at this time. CM to follow for discharge planning needs that may arise. PCP: No PCP, list provided to patient Specialists: none Preferred Pharmacy: [facility] retail at discharge Insurance: MMO Prescription Benefit: yes Living Will/HPOA: none LNOK: father Living Arrangements: Patient lives with father in a 2 story home. Patient is independent and able to ambulate stairs. Transportation: self, father DME/HHC: Patient denies DME in the home. No previous HHC Disposition Plan: Patient to discharge home with family support and follow-up plans in place. Juhi WILKERSON, RN, CM
--- NOTE | 2023-04-21 10:32 | PCM.PN.HOSP ---
Reason for Visit Reason for Visit: Abdominal pain/nausea/diarrhea Subjective Subjective Patient still with abdominal pain. No nausea or vomiting. Lots of diarrhea but he is undergoing bowel prep for colonoscopy later today. Objective Data Objective Data Vital Signs: Vital Signs Temp Pulse Resp BP Pulse Ox O2 Del Method O2 Flow Rate 98.5 F 58 L 14 101/62 99 Room Air 0 04/21/23 09:00 04/21/23 09:00 04/21/23 09:00 04/21/23 09:00 04/21/23 09:00 04/21/23 09:00 04/20/23 09:01 Oxygen Flow Rate (L/min) 0 Oxygen Delivery Method Room Air Weight: 79.1 kg Body Mass Index (BMI) 28.1 Intake & Output: Intake and Output for Last 24 Hours 04/19/23 04/20/23 04/21/23 23:59 23:59 23:59 Intake Total 3064.58 / 3064.58 1100 / 1100 Balance 3064.58 / 3064.58 1100 / 1100 Lab / Micro Data 04/21/23 06:00 04/21/23 06:00 Labs: Laboratory Results - last 24 hr 04/21/23 06:00: WBC 6.7, RBC 4.52 L, Hgb 13.7, Hct 40.3, MCV 89.2, MCH 30.3, MCHC 34.0, RDW Std Deviation 39.9, RDW Coeff of Naveed 12.2, Plt Count 168, MPV 9.4, Immature Gran % (Auto) 0.300, Neut % (Auto) 61.6, Lymph % (Auto) 23.1, [place] % (Auto) 10.1 H, Eos % (Auto) 4.5, Baso % (Auto) 0.4, Absolute Neuts (auto) 4.2, Absolute Lymphs (auto) 1.56, Nucleated RBC % 0, Sodium 138, Potassium 3.8, Chloride 106, Carbon Dioxide 29.0, Anion Gap 3 L, BUN 9, Creatinine 1.17, Estim Creat Clear Calc 87.85, Est GFR (MDRD) Af Amer 98, Est GFR (MDRD) Non-Af 81, BUN/Creatinine Ratio 7.7 L, Glucose 95, Calcium 8.4 L, Phosphorus 4.0, Magnesium 2.1, Total Bilirubin 0.40, AST 20, ALT 28, Alkaline Phosphatase 55, Total Protein 6.8, Albumin 3.3, Globulin 3.5, Albumin/Globulin Ratio 0.9 Micro: Microbiology 04/20/23 18:05 Stool Enteric Bacteriology - Final Campylobacter species 04/20/23 18:05 Stool Stool Lactoferrin - Final 04/20/23 18:05 Stool C. difficile DNA Amplification - Final 04/20/23 18:05 Stool Stool Occult Blood (ASUNCION) - Final Occult Blood Positive Physical Exam Const alert, oriented x3, no apparent distress, average body habitus and well nourished Constitutional Narrative: Young, white male, lying in bed, nursing at bedside, patient appears ill but nontoxic General Appearance: cooperative HEENT normocephalic, head/scalp atraumatic and hearing grossly normal bilaterally Resp normal respiratory effort, no retractions, no use of accessory muscles and clear to auscultation bilaterally Auscultation: Negative for rales, rhonchi or wheezes Cardio regular rate, regular rhythm, S1 normal heart sound, S2 normal heart sound, no murmurs, no rub, no gallops and no clicks GI GI Narrative: Bowel sounds are normal active, abdomen is nondistended, diffuse tenderness with more increased point tenderness in the right lower quadrant and right side of abdomen, no distention Extremity no clubbing, cyanosis or edema Extremity Narrative: Pedal pulse is are 2+ Skin Skin Narrative: Multiple tattoos, no wounds or lesions Neuro oriented x3, moves all extremities and no focal motor deficits Speech: speech normal Psych Psych Narrative: Affect is slightly flat however eye contact is good and mood appears stable Assessment & Plan Assessment/Plan (1) Right sided colitis: (2) Abdominal pain: QUALIFIERS: Abdominal location: generalized Qualified Code(s): R10.84 - Generalized abdominal pain (3) Campylobacter intestinal infection: PLAN: Plan Colitis secondary to Campylobacter infection -CT demonstrates acute colitis of the ascending and proximal transverse colon -No family history of personal history of inflammatory bowel disease -Stool is positive for occult blood and lactoferrin -Discontinue Zosyn -IV fluids at 125 cc/h -Continue n.p.o. except for sips and chips and start clear liquid diet and advance as tolerated after colonoscopy -As needed antiemetics -As needed pain medications -GI following and I did discuss Campylobacter infection with Dr. Amezquita. Hold antibiotics for now as this is typically self-limiting Tobacco abuse -Nicotine patch -Patient vapes -Recommend cessation DVT prophylaxis -Lovenox 40 subcu daily CODE STATUS Full code Charges/Coding Visit Charges Inpatient E&M: 32183 Subs Hosp L2
[2023-04-21] MEDS: Enoxaparin 40 MG/0.4 ML Syringe SC (10:34)
[2023-04-21 11:34] LABS: HIV - WCH Non-Reactive (Nonreactive)
--- NOTE | 2023-04-21 13:56 | CASEMGMT ---
Per nursing admission questions patient does not have a Healthcare Power of Chief Of Internal Medicine or Healthcare Living Will and patient is not interested in documents. Franci NAVAS
[2023-04-21] MEDS: Lactated Ringers 1,000 ML 15 ML IV (16:36)
--- NOTE | 2023-04-21 17:00 | COLBX_PTH ---
PATIENT: ELIO FORTUNE LOC: [facility] U#:[id number] AGE/SX: 22/M ROOM: [facility] RE04/20/[address]: Dr. Sudeep Sotelo MD : 2000 BED: 1 DIS: 04/22/2023 SPEC #: [id number] RECD: 04/22/23 07:50 STATUS: MIGUELINA REVianney #: [id number] SUELLEN: 04/21/23 17:[address]: Marek Amezquita DEPT: SURGICAL PATHOLOGY RECD BY: Casandra Avendano ENTERED: 04/22/23 07:51 SP TYPE: COLON BX OTHR DR: MD Dr. Amie Rosas, DO Dr. Sudeep Sotelo MD No Primary Care Phys Tissues: A - Ileum, NOS B - COLON BIOPSY Procedures: Surgery Specimen Level IV Comments: @ Ordering doctor for SUIV edited from to @ by SHREYA at 04/22/23 1515 @ Submitting doctor edited from to @ by RGOOD at 04/22/23 1515 HEADER OPERATION: Colonoscopy with biopsies PRE-OP DIAGNOSIS: Abdominal pain, nausea, vomiting TISSUE SUBMITTED: A - Terminal ileum biopsy, B - Random colon biopsies MICROSCOPIC DIAGNOSIS A. Terminal ileum, biopsy: Fragments of small intestinal mucosa with nonspecific chronic inflammation and focal area suggestive of granuloma formation. B. Colon, random biopsy: Focal acute colitis. See comment. SJ:yanelis 04/23/2023 COMMENT Focal crypt abscesses are noted. Significant glandular distortion is not seen. No evidence of dysplasia. Correlation with clinical, endoscopic findings and appropriate follow up are necessary. Case has been reviewed in consultation with Dr. Flores who concurs with the above diagnosis. IDC:AM MICROSCOPIC DESCRIPTION Slides are reviewed. GROSS DESCRIPTION A - Received in fixative is one container labeled with the patient's name and designated terminal ileum. The specimen consists of multiple irregular fragments of light rivera soft tissue that in aggregate measure 1.0 x 0.5 x 0.1 cm. The specimen is totally submitted in one cassette. B - Received in fixative is one container labeled with the patient's name and designated random colon biopsy. The specimen consists of multiple irregular fragments of light rivera soft tissue that in aggregate measure 1.0 x 0.6 x 0.1 cm. The specimen is totally submitted in one cassette. / AM:yanelis 04/22/2023 TC:2 CPT: 05036 x2
--- NOTE | 2023-04-21 17:51 | OP.COLON_ITS ---
Patient Name: Mark Aguayo Procedure Date: 04/21/2023 5:30 PM Date of : 2000 Age: 22 Procedure: Colonoscopy Indications: Clinically significant diarrhea of unexplained origin Providers: Marek Amezquita DO Medicines: Monitored Anesthesia Care Patient Profile: This is a 22 year old male. Refer to note in patient chart for documentation of history and physical. Last Colonoscopy: none. The patient's first colonoscopy is today. Complications: No immediate complications. Procedure: Pre-Anesthesia Assessment: - Prior to the procedure, a History and Physical was performed, and patient medications and allergies were reviewed. The risks and benefits of the procedure and the sedation options and risks were discussed with the patient. All questions were answered and informed consent was obtained. Patient identification and proposed procedure were verified by the physician. Mental Status Examination: normal. Prophylactic Antibiotics: The patient does not require prophylactic antibiotics. Prior Anticoagulants: The patient has taken no anticoagulant or antiplatelet agents. ASA Grade Assessment: II - A patient with mild systemic disease. After reviewing the risks and benefits, the patient was deemed in satisfactory condition to undergo the procedure. The anesthesia plan was to use monitored anesthesia care (MAC). Immediately prior to administration of medications, the patient was re-assessed for adequacy to receive sedatives. The heart rate, respiratory rate, oxygen saturations, blood pressure, adequacy of pulmonary ventilation, and response to care were monitored throughout the procedure. The physical status of the patient was re-assessed after the procedure. After I obtained informed consent, the scope was passed under direct vision. Throughout the procedure, the patient's blood pressure, pulse, and oxygen saturations were monitored continuously. The Colonoscope was introduced through the anus and advanced to the terminal ileum. The colonoscopy was performed without difficulty. The patient tolerated the procedure well. The quality of the bowel preparation was fair. The terminal ileum, ileocecal valve, appendiceal orifice, and rectum were photographed. Scope In: 5:35:59 PM Scope Withdrawal Time 0 hours 4 minutes 46 seconds Scope Out: 5:43:22 PM Total Procedure Duration Time 0 hours 7 minutes 23 seconds Findings: The perianal and digital rectal examinations were normal. Diffuse moderate mucosal changes characterized by congestion (edema), erythema and granularity were found in the entire colon. Biopsies were taken with a cold forceps for histology. Verification of patient identification for the specimen was done. Estimated blood loss was minimal. A localized area of the terminal ileum was congested. Biopsies were taken with a cold forceps for histology. Verification of patient identification for the specimen was done. Estimated blood loss was minimal. Impression: - Preparation of the colon was fair. - Diffuse moderate mucosal changes were found in the entire examined colon secondary to colitis. Biopsied. - Congested mucosa in the terminal ileum. Biopsied. Recommendation: - [facility]. - Resume regular diet. - Continue present medications. - Await pathology results. - Repeat colonoscopy is recommended. The colonoscopy date will be determined after pathology results from today's exam become available for review. Procedure Code(s): --- Professional --- 78494, Colonoscopy, flexible; with biopsy, single or multiple CPT copyright 2021 [employer]. All rights reserved. The codes documented in this report are preliminary and upon corrections sergeant review may be revised to meet current compliance requirements. Marek Amezquita DO 04/21/2023 5:50:56 PM This report has been signed electronically. Number of Addenda: 0 Note Initiated On: 04/21/2023 5:30 PM
--- NOTE | 2023-04-21 17:51 | OP.CCLET_ITS ---
04/21/2023 No Primary Care Physician Re : Colonoscopy procedure for Mark Aguayo Dear Care Physician This procedure was performed on Friday, April 21, 2023. My impressions and recommendations are as follows: Impressions : - Preparation of the colon was fair. - Diffuse moderate mucosal changes were found in the entire examined colon secondary to colitis. Biopsied. - Congested mucosa in the terminal ileum. Biopsied. Recommendations : - [facility] patient to [facility] care. - Resume regular diet. - Continue present medications. - Await pathology results. - Repeat colonoscopy is recommended. The colonoscopy date will be determined after pathology results from today's exam become available for review. My findings are described in the full procedure note, which is enclosed. If I can be of further assistance, please feel free to contact me at . Sincerely, Marek Amezquita, 04/21/2023 5:50:56 PM This report has been signed electronically.
[2023-04-21] MEDS: 0.9% Saline Lock 10 ML Syringe IV (19:57)
[2023-04-22 00:12] VITALS: BP 106/55; PULSE 62; RESP 15; TEMP 36.8; O2SAT 98
[2023-04-22 03:53] VITALS: BP 122/70; PULSE 75; RESP 15; TEMP 36.4; O2SAT 99
[2023-04-22 05:30] VITALS: BP 120/74
[2023-04-22] MEDS: 0.9% Saline Lock 10 ML Syringe IV ×2 (05:36→06:32)
[2023-04-22] MEDS: Morphine 2 MG/ML Syringe IV (05:36)
[2023-04-22] MEDS: Ondansetron 4 MG/2 ML Vial IV (06:33)
[2023-04-22 07:36] VITALS: O2SAT 94
--- NOTE | 2023-04-22 08:14 | DCINST_ITS ---
Discharge Instructions Diet Discharge Diet: No restrictions Activity Discharge Activity: Return to Normal Activity Weight Bearing Status: Weight bearing as tolerated Dressing / Incision Call your doctor if you observe: Fever of 101 or Higher, Coldness, Increased Pain, Numbness or Tingling, Change in Color, Inability to urinate, Inability to have a bowel movement, Shortness of breath, Dizziness, Fainting spells, Swelling in the ankles, Chest pain, Prolonged hiccupping, Increased palpitations (irregular heartbeat) and Calf discomfort Follow Up Care When: IN 2 WEEKS Test Results: Test results from this visit will be discussed in further detail at your follow- up appointment, if applicable. Discharge Plan Admission Admit Date/Time: 04/20/23 16:25 Primary Reason for Your Visit: ACUTE gastroenteritis Attending Provider: Sudeep Sotelo Primary Care Provider: Care Physician,No Primary Consulting Providers: Eddie Landeros; Amie Navas Discharge Orders/Prescriptions Prescriptions: No Action NK Referrals / Follow Up: Care Physician,No Primary [Primary Care Provider] - Marek Amezquita DO [Med Staff - Active Staff] - Within 1 Month (FOR COLITIS) Disposition Disposition (needs filled in before D/C Order can be placed): Home, Self Care
[2023-04-22 08:48] LABS: Absolute Lymphocyte Count 2.13 X10^3/uL (0.83-4.51); Absolute Neutrophil Count 2.2 X10^3/uL (2.0-7.7); Basophil# 0.06 X10^3/uL; Basophil% 1.1 % (0-1); Eosinophil# 0.55 X10^3/uL; Eosinophils% 9.9 % (0-5); Hematocrit 41.4 % (40-54); Lymphocyte # 2.13 X10^3/ul (0.83-4.51); Lymphocyte % 38.5 % (19-41); Mean Corp Hgb Conc 33.8 g/dL (32-36); Mean Corpuscular Hgb 29.6 pg (27.0-32.0); Mean Corpuscular Volume 87.5 fL (80-94); Monocyte# 0.56 X10^3/uL; Monocyte% 10.1 % (0-10); NRBC Flagged by Analyzer 0 % (0-5); Neutrophil # 2.22 X10^3/uL (2.7-7.7); Neutrophil % 40.2 % (47-70); Platelet Count 210 K/mm3 (150-450); RBC Distribution Width CV 12.1 % (11.6-14.6); RBC Distribution Width SD 39.1 fl (35.1-43.9); Red Blood Count 4.73 M/mm3 (4.6-6.2); White Blood Count 5.5 K/mm3 (4.4-11.0)
[2023-04-22 09:11] LABS: Anion Gap 5 (5-15); BUN 10 mg/dL (7-18); BUN/Creat Ratio 9.4 RATIO (10-20); Chloride 107 mmol/L (98-107); Creatinine, Serum 1.06 mg/dL (0.70-1.30); EST Glomerular Filtration Rate 91 mL/min (>60); Est Glom Filt Rate - Afr Amer 110 mL/min (>60); Estimated Creatinine Clearance 96.97 ml/min; Glucose 93 mg/dL (74-106); Potassium 3.9 mmol/L (3.5-5.1); Sodium Level 139 mmol/L (136-145)
[2023-04-22 09:29] VITALS: BP 122/60; PULSE 65; RESP 16; TEMP 36.6; O2SAT 99
[2023-04-22] MEDS: Enoxaparin 40 MG/0.4 ML Syringe SC (09:38)
--- NOTE | 2023-04-22 10:56 | PCM.DC.SUM ---
Providers Date of Admission: 04/20/23 Date of Discharge: 04/22/23 Primary Care Physician: Mylene Primary Care Phys Consultations 04/20/23 08:31 Consult: Gastroenterology Routine Consulting Provider: [facility] Reason for Consult: Colitis EMERGENT Consult: No Notified: Yes Date Notified: 04/20/23 Time Notified: 08:52 Method of Notification: Text Consult: General Surgery Routine Consulting Provider: Eddie Landeros Reason for Consult: colitis EMERGENT Consult: No Notified: Yes Date Notified: 04/20/23 Time Notified: 07:36 Method of Notification: ED Physician Initiated Reason For Visit: COLITIS Diagnosis Discharge Diagnosis (1) Right sided colitis: Status: Acute Code(s): K52.9 - Noninfective gastroenteritis and colitis, unspecified (2) Abdominal pain: Status: Acute Code(s): R10.9 - Unspecified abdominal pain Qualifiers: Abdominal location: generalized Qualified Code(s): R10.84 - Generalized abdominal pain (3) Campylobacter intestinal infection: Status: Acute Code(s): A04.5 - Campylobacter enteritis Plan 22-year-old gentleman was admitted with abdominal pain started 2 days ago prior to admission along with 2 episodes of vomiting. Patient also had diarrhea multiple times all day 1 day before admission with some mild blood in the stool. 1. Colitis secondary to Campylobacter infection -CT demonstrates acute colitis of the ascending and proximal transverse colon -No family history of personal history of inflammatory bowel disease -Stool is positive for occult blood and lactoferrin. Patient had colonoscopy report mentioned below. Patient initially resuscitated well with IV fluid and started on IV Zosyn which was discontinued after enteric panel came positive for Campylobacter which is self-limited infection. Patient does not need usually antibiotic. Patient advised to follow-up in GI office after 4 weeks for biopsy of colonoscopy. Impression: - Diffuse moderate mucosal changes were found in the entire examined colon secondary to colitis. Biopsied. - Congested mucosa in the terminal ileum. Biopsied. 2. Chronic vaping/nicotine use disorder: Patient advised to quit. 3 DVT prophylaxis -Lovenox 40 subcu daily Discharge medication reconciliation done. Discharge follow-up instructions completed. Discharge process discussed with the patient and all questions were answered to patient's satisfaction. Follow with PCP in 1 to 2 weeks Total time spent, exact 35 minutes on discharge meds reconciliation, examination, coordination of care with nurses and ancillary staff, review of imaging and blood test and discussion with the patient on follow-up instructions. Medications at Discharge Home Medications NK 04/20/23 Physical Exam Narrative Seen and examined. Abdominal pain has resolved. Patient on soft diet. No nausea vomiting or diarrhea. No hematochezia or melena or hematemesis. General: Alert, Oriented x3, Cooperative HEENT: Atraumatic, PERRLA, EOMI, Normocephalic Oral: Oral mucosa moist. No Gingival or Mucosal Lesions/ Ulcerations Neck: Supple, No JVD, Negative Carotid Bruits Lungs: Air entry diminished in bilateral lung bases. No crepitation/rhonchi Cardiovascular: Regular rate, Regular Rhythm, Normal S1, Normal S2, No murmurs Abdomen: Bowel Sounds Present, Soft, Non Tender, Non-Distended : No renal angle tenderness. No suprapubic tenderness. Extremities: No edema, Capillary Refill Less than 3 Seconds Skin: No rashes, No breakdown Musculoskeletal: No Tenderness to Palpation of Joints or Extremities. Muscle strength 5/5 at major joints. Neurological: Cranial nerves II-XII grossly intact, DTR 2+/4. No acute focal neurological deficit. Psych/Mental Status: Normal Affect, Appropriate. Weight / BMI Weight Weight: 174 lb 6.17 oz Body Mass Index (BMI) 28.1 ABG / Lab / Microbiology Data 04/22/23 07:58 04/22/23 07:58 Laboratory: Laboratory Results - last 24 hr 04/21/23 06:00: HIV 1&2 Antibody Non-Reactive 04/22/23 07:58: WBC 5.5, RBC 4.73, Hgb 14.0, Hct 41.4, MCV 87.5, MCH 29.6, MCHC 33.8, RDW Std Deviation 39.1, RDW Coeff of Naveed 12.1, Plt Count 210, MPV 10.0, Immature Gran % (Auto) 0.200, Neut % (Auto) 40.2 L, Lymph % (Auto) 38.5, Armstrong % (Auto) 10.1 H, Eos % (Auto) 9.9 H, Baso % (Auto) 1.1 H, Absolute Neuts (auto) 2.2, Absolute Lymphs (auto) 2.13, Nucleated RBC % 0, Sodium 139, Potassium 3.9, Chloride 107, Carbon Dioxide 27.0, Anion Gap 5, BUN 10, Creatinine 1.06, Estim Creat Clear Calc 96.97, Est GFR (MDRD) Af Amer 110, Est GFR (MDRD) Non-Af 91, BUN/Creatinine Ratio 9.4 L, Glucose 93, Calcium 9.0 Microbiology: Microbiology 04/20/23 18:05 Stool Enteric Bacteriology - Final Campylobacter species 04/20/23 18:05 Stool Stool Lactoferrin - Final 04/20/23 18:05 Stool C. difficile DNA Amplification - Final 04/20/23 18:05 Stool Stool Occult Blood (ASUNCION) - Final Occult Blood Positive D/C Instructions Discharge Diet: No restrictions Weight Bearing Status: Weight bearing as tolerated Call your doctor if you observe: Fever of 101 or Higher, Coldness, Increased Pain, Numbness or Tingling, Change in Color, Inability to urinate, Inability to have a bowel movement, Shortness of breath, Dizziness, Fainting spells, Swelling in the ankles, Chest pain, Prolonged hiccupping, Increased palpitations (irregular heartbeat) and Calf discomfort When: IN 2 WEEKS Meaningful Use Info Meaningful Use Diagnoses (Choose all that apply): None applicable Discharge Plan Admission Admit Date/Time: 04/20/23 16:25 Primary Reason for Your Visit: ACUTE gastroenteritis Attending Provider: Sudeep Sotelo Primary Care Provider: Care Physician,Mylene Primary Consulting Providers: Eddie Landeros; Amie Navas Discharge Orders/Prescriptions Prescriptions: No Action NK Referrals / Follow Up: Marek Amezquita DO [Med Staff - Active Staff] - Within 1 Month (FOR COLITIS) Care Physician,No Primary [Primary Care Provider] - Disposition Disposition (needs filled in before D/C Order can be placed): Home, Self Care Charges/Coding Visit Charges Inpatient E&M: 33711 Disch Hosp >30min
[2023-04-23 13:07] LABS: Anti-Centromere B Ab 4.9 AI (0.0-0.9); Anti-Chromatin <0.2 AI (0.0-0.9); Anti-Jo <0.2 AI (0.0-0.9); Anti-Scleroderma-70 AB <0.2 AI (0.0-0.9); Anti-dsDNA Ab 1 IU/mL (0-9); RNP Ab <0.2 AI (0.0-0.9); SJOGREN'S Anti-SS-A test < 0.2 AI (0.0-0.9); SJOGREN'S Anti-SS-B test < 0.2 AI (0.0-0.9); Smith Ab <0.2 AI (0.0-0.9)
[2023-04-23 17:07] LABS: Albumin 3.5 g/dL (2.9-4.4); Alpha-1-Globulins 0.3 g/dL (0.0-0.4); Alpha-2-Globulins 0.7 g/dL (0.4-1.0); Cytoplasmic Ab (C-ANCA) <1:20 titer (Neg:<1:20); Gamma Globulin 0.9 g/dL (0.4-1.8); HEPATITIS B SURFACE AG Negative (Negative); Hep C Antibodies Non Reactive (Non Reactive); Hepatitis A IgM Antibody Negative (Negative); Hepatitis B Core AB IgM Negative (Negative); Immunoglobulin A 208 mg/dL (90-386); Immunoglobulin G 984 mg/dL (603-1613); Immunoglobulin M 39 mg/dL (20-172); PROEL- TOTAL PROTEIN 6.3 g/dL (6.0-8.5); Perinuclear Ab (P-ANCA) <1:20 titer (Neg:<1:20); QNTFERON TB Mitogen Value > 10.00 IU/mL (.); QNTFERON TB Nil Value 0.24 IU/mL (.); QNTFERON TB1+ Ag Value 0.25 IU/mL (.); QNTFERON TB2+ Ag Value 0.24 IU/mL (.); QNTIFERON TB Positive Criteria Negative (Negative)
== END 2023-04-22 13:38 | disposition home or self-care (01) | DRG 373 ==
LOC: ED 07:43 → PCU 08:57
PROVIDERS: Internal Medicine Gastroenterology; Admitting Provider Internal Medicine; Emergency Provider Emergency Medicine; Visit Provider Internal Medicine
PROC: 0DJD8ZZ Inspection of Lower Intestinal Tract, Via Natural or Artificial Opening Endoscopic (ICD-10-PCS; CPT 45378; principal; 2023-04-21 16:55)
DX: A04.5 Campylobacter enteritis (principal); F12.90 Cannabis use, unspecified, uncomplicated; F17.210 Nicotine dependence, cigarettes, uncomplicated
CPT/HCPCS: 36415; 74177; 80048; 80053; 80074; 81001; 82274; 82784; 83630; 83690; 83735; 84100; 84165; 85025; 85652; 86140; 86225; 86235; 86256; 86334; 86480; 86703; 87493; 87506; 88305; 94668; 99252; 99285; 99406; J7030; J7120; Q9967; A4216; G0463; J2405